=== PATIENT | female | born 1990 | race Caucasian/White ===

== ENCOUNTER 2017-12-03 16:53 | Emergency (ER) | payer OTHER ==
[2017-12-03 17:16] VITALS: O2SAT 98
--- NOTE | 2017-12-03 17:34 | ERPHSYRPT ---
- History of Present Illness Time Seen by Provider: 12/03/17 17:15 Source: patient Exam Limitations: clinical condition Patient Subjective Stated Complaint: here for for earache, cough and congestion for over a week now, no fever Triage Nursing Assessment: pt alert, resp easy, skin w/d pink. nonproductive cough, no drainage from ears Physician History: PATIENT COMPLAINS OF A PRODUCTIVE COUGH, SORETHROAT, AND RIGHT EARACHE FOR 10 DAYS. DENIES FEVER, CHILLS, DIFFICULTY BREATHING. Timing/Duration: week(s) Cough Quality/Degree: moderate Possible Cause: occasional episodes Modifying Factors: Improves With: coughing Associated Symptoms: cough, other (EARACHE) Allergies/Adverse Reactions: No Known Drug Allergies Allergy (Unverified 12/03/17 17:16) Hx Tetanus, Diphtheria Vaccination/Date Given: Yes Hx Influenza Vaccination/Date Given: No Hx Pneumococcal Vaccination/Date Given: No Immunizations Up to Date: Yes - Review of Systems Constitutional: No Fever, No Chills Eyes: No Symptoms Ears, Nose, & Throat: Ear Pain, Throat Pain Respiratory: Cough, No Dyspnea Cardiac: No Symptoms, No Chest Pain, No Edema, No Syncope Abdominal/Gastrointestinal: No Symptoms, No Abdominal Pain, No Nausea, No Vomiting, No Diarrhea Genitourinary Symptoms: No Symptoms, No Dysuria Musculoskeletal: No Back Pain, No Neck Pain Skin: No Rash Neurological: No Dizziness, No Focal Weakness, No Sensory Changes Psychological: No Symptoms Endocrine: No Symptoms All Other Systems: Reviewed and Negative - Past Medical History Pertinent Past Medical History: No - Past Surgical History Past Surgical History: Yes Female Surgical History: Section - Social History Smoking Status: Current some day smoker Exposure to second hand smoke: Yes Drug Use: none Patient Lives Alone: No - Female History Hx Last Menstrual Period: unsure Hx Now: (unsure) - Nursing Vital Signs Nursing Vital Signs: Initial Vital Signs Temperature 97.8 F 12/03/17 17:05 Pulse Rate 87 12/03/17 17:05 Respiratory Rate 16 12/03/17 17:05 Blood Pressure 140/97 12/03/17 17:05 O2 Sat by Pulse Oximetry 98 12/03/17 17:05 Pain Scale Pain Intensity 7 - Physical Exam General Appearance: no apparent distress, alert Eye Exam: PERRL/EOMI, eyes nml inspection Ears, Nose, Throat Exam: moist mucous membranes, pharyngeal erythema (WITH HYPERTROPHY WITHOUT EXUDATES, RIGHT TM WITH ERYTHEMA) Neck Exam: normal inspection, non-tender, supple, full range of motion Respiratory Exam: normal breath sounds, lungs clear, No respiratory distress Cardiovascular Exam: regular rate/rhythm, normal heart sounds Gastrointestinal/Abdomen Exam: soft, No tenderness Back Exam: normal inspection, No CVA tenderness, No vertebral tenderness Extremity Exam: normal inspection, normal range of motion Neurologic Exam: alert, oriented x 3, cooperative, normal mood/affect, sensation nml, No motor deficits Skin Exam: normal color, warm, dry, No rash Lymphatic Exam: No adenopathy SpO2: 98 Oxygen Delivery: Room Air Ordered Tests: Active Orders 24 hr Category Date Time Status CULTURE, THROAT Stat Lab 12/03/17 17:25 Received STREP SCREEN-BETA A Stat Lab 12/03/17 17:25 Completed Lab/Rad Data: Laboratory Results 12/03/17 Range/Units 17:25 Streptococcus Screen NEGATIVE (Negative) - Progress Counseled pt/family regarding: lab results, diagnosis, need for follow-up - Departure Time of Disposition: 18:00 Departure Disposition: Home Clinical Impression: ACUTE BRONCHITIS Condition: Stable Critical Care Time: No Referrals: MORENITA SLOAN [Primary Care Provider] - Additional Instructions: ANTIBIOTIC AUGMENTIN 875MG TWICE DAILY FOR 10 DAYS. TYLENOL OR MOTRIN NEEDED FOR FEVER OR CHILLS. TAKE OVER THE COUGH SYRUP FOR COUGHING. FOLLOWUP WITH YOUR PRIMARY CARE PROVIDER FOR EVALUATION IN 1 WEEK. Prescriptions: Amox Tr/Potass Clav. 875 mg [Augmentin 875-125 Tablet] 1 each PO BID #20 tablet
[2017-12-03 18:15] VITALS: BP 111/70; PULSE 82
== END 2017-12-03 18:16 | disposition home or self-care (01) ==
LOC: ED 16:53
DX: J20.9 Acute bronchitis, unspecified (principal)
CPT/HCPCS: 87070; 87430; 99282